=== PATIENT | male | born 1995 | race Caucasian/White ===

== ENCOUNTER 2017-04-14 11:10 | Emergency (ER) | payer BC ==
[2017-04-14 11:26] VITALS: BP 135/72
--- NOTE | 2017-04-14 13:05 | UC ---
Ear Complaint HPI - HPI Summary HPI Summary: left ear plugged x 1 day, without vertigo or associated URI symptoms. - History of Current Complaint Chief Complaint: UCEar Stated Complaint: LFT EAR COMPLAINT Time Seen by Provider: 04/14/17 12:59 Hx Obtained From: Patient Onset/Duration: Sudden Onset, Lasting Days - 1 Pain Intensity: 0 Aggravating Factors: Nothing Alleviating Factors: Nothing - tried a q-tip - Allergies/Home Medications Allergies/Adverse Reactions: Allergies Allergy/AdvReac Type Severity Reaction Status Date / Time amoxicillin Allergy Rash Verified 04/14/17 11:20 PMH/Surg Hx/FS Hx/Imm Hx Previously Healthy: Yes - Surgical History Surgical History: None - Family History Known Family History: Positive: None - both parents alive and healthy - Social History Occupation: Student Alcohol Use: None Substance Use Type: None Smoking Status (MU): Never Smoked Tobacco - Immunization History Vaccination Up to Date: Yes Review of Systems Constitutional: Negative Skin: Negative Eyes: Negative ENT: Other - plugged left ear Respiratory: Negative Cardiovascular: Negative Gastrointestinal: Negative Genitourinary: Negative Motor: Negative Neurovascular: Negative Musculoskeletal: Negative Neurological: Negative Psychological: Negative Is Patient Immunocompromised?: No All Other Systems Reviewed And Are Negative: Yes Physical Exam Triage Information Reviewed: Yes Appearance: Well-Appearing, No Pain Distress, Obese Vital Signs: Initial Vital Signs Temp 98.2 F 04/14/17 11:21 Pulse 79 04/14/17 11:21 Resp 20 04/14/17 11:21 BP 135/72 04/14/17 11:21 Pulse Ox 99 04/14/17 11:21 Eyes: Positive: Conjunctiva Clear ENT: Positive: Pharynx normal, TM dull - on the right, right canal is clear, Other - left ear canal filled with cerumen Neck exam: Normal Neck: Positive: No Lymphadenopathy Respiratory: Positive: Lungs clear, Normal breath sounds Cardiovascular: Positive: RRR, No Murmur Psychological Exam: Normal Skin Exam: Normal Ear Complaint Course/Dx - Course Course Of Treatment: cerumen syringed from left ear. - Differential Dx/Diagnosis Differential Diagnosis/HQI/PQRI: Cerumen Impaction Provider Diagnoses: cerumen impaction left ear Discharge - Discharge Plan Condition: Stable Disposition: HOME Patient Education Materials: Cerumen Impaction (ED) Referrals: Pramod Gaytan MD [Primary Care Provider] - Additional Instructions: You can prevent future wax build up by using a 50:50 dilution of hydrogen peroxide and water about once per week. This will generally clear the collected wax of rhe week.
== END 2017-04-14 13:24 | disposition home or self-care (01) ==
LOC: UCCORT 11:10
DX: H61.22 Impacted cerumen, left ear (principal)
CPT/HCPCS: 99201; G0463